=== PATIENT | female | born 1990 | race Caucasian/White ===

== ENCOUNTER 2018-06-20 19:16 | Emergency (ER) | payer OTHER, MEDICAID ==
[~2018-06-20] VITALS: Ht 160 cm; Wt 56.7 kg
[~2018-06-20 19:16] MED LIST: ACETAMINOPHEN-1 EAC1 PO; AMOXICILLIN875 MG PO; CIPROFLOXACIN500 M1 PO; CLONAZEPAM; CLONAZEPAM 1 MG1 M1 PO; CYCLOBENZAPRINE5 MG PO; DOXYCYCLINE 10100 MG PO; GABAPENTIN 100100 MG PO; HYDROCODON-ACE1 EA11 PO; HYDROCODONE-AP1 EAC6 PO; IBUPROFEN 600600 M1 PO; IBUPROFEN 800800 M1 PO; MEDROLDOSEPACK PO; OXYCODONE HCL 55 MG PO; PROMETHAZINE D480 M1 PO; SERTRALINE HCL50 MG PO; TORADOL 10 MG T10 MG PO; TRAMADOL 50 MG50 MG PO; VENTOLIN17 GM INH; VICODIN; ZOLOFT PO
[2018-06-20] MEDS ORDERED: NAPROSYN500 MG PO (20:05)
[2018-06-20 20:18] VITALS: BP 123/72
== END 2018-06-20 20:20 | disposition home or self-care (01) ==
LOC: M.ERS 19:16
DX: S90.31XA Contusion of right foot, initial encounter (principal); F17.210 Nicotine dependence, cigarettes, uncomplicated; W20.8XXA Other cause of strike by thrown, projected or falling object, initial encounter; Y93.89 Activity, other specified; Y92.89 Other specified places as the place of occurrence of the external cause; Y99.8 Other external cause status